=== PATIENT | female | born 1985 | race Asian ===

== ENCOUNTER 2017-05-09 08:45 | Day surgery (SDC) | payer BC ==
[~2017-05-09 08:45] MED LIST: LACTATED RINGER'S 1,000 ML IV; LIDOCAINE 3.5% GEL TUBE OPER
[2017-05-09] MEDS: CYCLOPENTOLATE 2% 2 ML OPH OPER (09:41)
[2017-05-09] MEDS: PHENYLephrine 10% 5 ML OPH OPER ×2 (09:41→12:11)
[2017-05-09] MEDS: LIDOCAINE 3.5% GEL TUBE OPER (09:41)
[2017-05-09] MEDS: TETRACAINE 0.5% 4 ML OPH OPER ×2 (09:41→12:05)
[2017-05-09] MEDS: MOXIFLOXACIN 0.5% 3 ML OPH OPER (09:41)
[2017-05-09] MEDS: TROPICAMIDE 1% 3 ML OPH OPER (09:41)
[2017-05-09] MEDS ORDERED: CARBACHOL 0.01% 1.5 ML OPH INJ (11:19)
[2017-05-09] MEDS ORDERED: EPINEPHrine 1 MG INJ (11:19)
[2017-05-09] MEDS ORDERED: LIDOCAINE 1% (MPF) 10 ML INJ (11:19)
[2017-05-09] MEDS ORDERED: FENTAnyl 50 MCG/ML VIAL ×2 (11:38→11:50)
[2017-05-09] MEDS ORDERED: DIPHENHYDRAMINE 50 MG INJ IV (12:00)
[2017-05-09] MEDS ORDERED: MEPERIDINE 25 MG INJ IV (12:00)
[2017-05-09] MEDS ORDERED: FENTAnyl 50 MCG/ML VIAL IV (12:00)
[2017-05-09] MEDS ORDERED: ONDANSETRON 4 MG INJ IV (12:00)
[2017-05-09] MEDS ORDERED: METOCLOPRAMIDE 10 MG INJ IV (12:00)
[2017-05-09] MEDS: LIDOCAINE 1%/EPI 30 ML INJ (12:04)
[2017-05-09] MEDS: TOBRAMYCIN 0.3% 3.5 GM OPH OINT (12:12)
[2017-05-09] MEDS ORDERED: CEFAZOLIN 1 GM INJ (12:37)
== END 2017-05-09 13:28 | disposition home or self-care (01) ==
LOC: SDS 08:45
DX: H25.041 Posterior subcapsular polar age-related cataract, right eye (principal)
CPT/HCPCS: 66984